=== PATIENT | male | born 1975 | race Caucasian/White ===

== ENCOUNTER → 2023-02-08 | Outpatient (CLI) | payer BC, SELFPAY ==
[2023-02-08 22:56] LABS: Absolute Lymphocyte Count 2.17 X10^3/uL (0.83-4.51); Absolute Neutrophil Count 5.3 X10^3/uL (2.0-7.7); Basophil# 0.05 X10^3/uL; Basophil% 0.6 % (0-1); Eosinophil# 0.08 X10^3/uL; Hematocrit 43.8 % (40-54); Hemoglobin 14.7 g/dL (13.0-16.5); Lymphocyte # 2.17 X10^3/ul (0.83-4.51); Lymphocyte % 26.1 % (19-41); Mean Corp Hgb Conc 33.6 g/dL (32-36); Mean Corpuscular Hgb 31.1 pg (27.0-32.0); Mean Corpuscular Volume 92.6 fL (80-94); Mean Platelet Vol. 10.7 fl (6.2-12.0); Monocyte# 0.71 X10^3/uL; Monocyte% 8.5 % (0-10); NRBC Flagged by Analyzer 0 % (0-5); Neutrophil # 5.27 X10^3/uL (2.7-7.7); Neutrophil % 63.3 % (47-70); Platelet Count 295 K/mm3 (150-450); RBC Distribution Width CV 13.2 % (11.6-14.6); RBC Distribution Width SD 45.2 fl (35.1-43.9); Red Blood Count 4.73 M/mm3 (4.6-6.2); White Blood Count 8.3 K/mm3 (4.4-11.0)
[2023-02-08 23:19] LABS: ALB/GLOB Ratio 0.9 RATIO (0.9-2.4); AST(SGOT) 23 U/L (15-37); Alanine Aminotransfer ALT/SGPT 26 U/L (16-61); Albumin, Serum 3.6 g/dL (3.2-5.0); Alkaline Phosphatase 58 U/L (45-117); Anion Gap 6 (5-15); BUN 12 mg/dL (7-18); BUN/Creat Ratio 14.7 RATIO (10-20); CRP, High Sensitivity Cardiac 1.25 mg/L; Chloride 104 mmol/L (98-107); Cholesterol 221 mg/dL (200); Creatinine, Serum 0.82 mg/dL (0.70-1.30); EST Glomerular Filtration Rate 108 mL/min (>60); Est Glom Filt Rate - Afr Amer 131 mL/min (>60); Globulin 4.2 g/dL (2.2-4.2); Glucose 99 mg/dL (74-106); High Density Lipoprotein 52 mg/dL; Potassium 4.2 mmol/L (3.5-5.1); Protein, Total 7.8 g/dL (6.4-8.2); Sodium Level 139 mmol/L (136-145); Thyroid Stim Hormone (TSH) 2.17 uIU/mL (0.358-3.74); Triglycerides 203 mg/dL; Very Low Density Lipoprotein 41 mg/dL (5-40)
== END | disposition home or self-care (01) ==
PROVIDERS: Visit Provider Nurse Practitioner
DX: R42 Dizziness and giddiness (principal); I10 Essential (primary) hypertension; H53.8 Other visual disturbances
CPT/HCPCS: 80053; 80061; 84443; 85025; 86141

== ENCOUNTER → 2023-03-10 | Outpatient (CLI) | payer BC, SELFPAY ==
--- NOTE | 2023-03-10 06:18 | MRI_ITS ---
HISTORY: pain. TECHNIQUE: Multiplanar and multisequence MR images of the cervical spine were obtained without contrast. 193 images. COMPARISON: XR 02/12/2023. FINDINGS: VERTEBRAE: Vertebral body heights maintained. Mild degenerative bone marrow endplate changes at multiple levels. Right facet bone marrow edema at C3-4 with trace effusion, 8 mm posterior synovial cyst, and mild surrounding soft tissue edema VERTEBRAL ALIGNMENT: Straightening of the cervical lordosis without anterior or posterior subluxation. SPINAL CORD: Cervical cord signal and morphology within normal limits. SOFT TISSUES: No prevertebral fluid collection. INTERVERTEBRAL DISCS: C2-3: No significant posterior disc protrusion or central canal stenosis. Degenerative changes of the posterior elements with mild left foraminal narrowing. C3-4: Minimal posterior disc bulge osteophyte complex with minimal narrowing of the thecal sac. C4-5: Mild posterior disc bulge osteophyte complex with mild central canal stenosis and no significant foraminal narrowing. C5-6, C6-7: Mild posterior disc bulge osteophyte complexes with uncovertebral arthropathy resulting in minimal narrowing of the thecal sac and mild bilateral foraminal narrowing. C7-T1: Minimal disc bulge without significant central canal stenosis or foraminal narrowing. 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 Mild multilevel degenerative disc disease of the cervical spine resulting in mild spinal canal stenosis and foraminal narrowing as above. Electronically Signed: Mickie Alas MD at 12:10 EDT ,
== END | disposition home or self-care (01) ==
PROVIDERS: Referring Provider Orthopaedic Surgery; Visit Provider Orthopaedic Surgery
DX: M54.12 Radiculopathy, cervical region (principal)
CPT/HCPCS: 72141